=== PATIENT | female | born 1995 | race Caucasian/White ===

== ENCOUNTER 2016-07-21 20:48 | Emergency (ER) | payer MEDICAID | END 2016-07-21 23:10 | disposition home or self-care (01) | LOC: ER 20:48 → EEVIPCON 20:48 → ER 23:10 | DX: S20.219A Contusion of unspecified front wall of thorax, initial encounter (principal); S20.02XA Contusion of left breast, initial encounter; S20.01XA Contusion of right breast, initial encounter; S30.1XXA Contusion of abdominal wall, initial encounter; S40.022A Contusion of left upper arm, initial encounter; S20.319A Abrasion of unspecified front wall of thorax, initial encounter; S20.112A Abrasion of breast, left breast, initial encounter; S20.111A Abrasion of breast, right breast, initial encounter; S30.811A Abrasion of abdominal wall, initial encounter; S40.812A Abrasion of left upper arm, initial encounter; Y00.XXXA Assault by blunt object, initial encounter; Y92.019 Unspecified place in single-family (private) house as the place of occurrence of the external cause; Z33.1 Pregnant state, incidental | CPT/HCPCS: 36415; 85460 ==